=== PATIENT | female | born 1965 ===

== ENCOUNTER → 2017-07-02 | Emergency (ER) | payer OTHER ==
[~2017-07-02] VITALS: Ht 170.2 cm; Wt 71.7 kg
[~2017-07-02] MED LIST: DUI500 PO; FOLIC ACID/B-6/1 TAB; GABADONE CAPSU1 EACH; LOSARTAN POTASS50 MG; LYRICA100 MG; MESTINON60 M1; ORASEP SPRAY30 ML MM; PEPCID AC20 MG; SIMPONI50 MG/0.1; SYNTHROID50 MCG; TRANDOLAPR-VER1 EACH; VERAPAMIL ER100 MG; ZANTAC300 MG
== END | disposition home or self-care (01) ==
LOC: ER 20:54
DX: B35.4 Tinea corporis (principal)

== ENCOUNTER 2017-08-07 11:26 | Outpatient (CLI) | payer OTHER | END 2017-08-07 11:32 | disposition home or self-care (01) | LOC: SONOGRAMA 11:26 | DX: N64.89 Other specified disorders of breast (principal); D64.9 Anemia, unspecified ==

== ENCOUNTER 2019-01-05 04:34 | Emergency (ER) | payer OTHER ==
[~2019-01-05] VITALS: Ht 170.2 cm; Wt 74.4 kg
== END 2019-01-05 18:00 | disposition home or self-care (01) ==
LOC: ER 04:34
DX: N28.1 Cyst of kidney, acquired (principal); R10.11 Right upper quadrant pain; R11.0 Nausea

== ENCOUNTER 2021-10-03 14:01 | Emergency (ER) | payer OTHER ==
[~2021-10-03] VITALS: Ht 170.2 cm; Wt 73.9 kg
[2021-10-03] MEDS ORDERED: AMLODIPINE-OLM1 EAC2 (15:10)
[2021-10-03] MEDS ORDERED: AVAPRO300 MG (15:10)
[2021-10-03] MEDS ORDERED: HUMIRA40 MG/0.2 (15:11)
== END 2021-10-03 19:52 | disposition home or self-care (01) ==
LOC: ER 14:01
DX: M79.662 Pain in left lower leg (principal)

== ENCOUNTER 2021-10-04 07:13 | Emergency (ER) | payer OTHER ==
[~2021-10-04] VITALS: Ht 170.2 cm; Wt 76.7 kg
[~2021-10-04 07:13] MED LIST changes: +AMLODIPINE-OLM1 EAC2; +AVAPRO300 MG; +HUMIRA40 MG/0.2
== END 2021-10-04 08:33 | disposition home or self-care (01) ==
LOC: ER 07:13
DX: M79.662 Pain in left lower leg (principal); M06.30 Rheumatoid nodule, unspecified site

== ENCOUNTER 2022-11-06 12:06 | Emergency (ER) | payer OTHER ==
[~2022-11-06] VITALS: Ht 167.6 cm; Wt 76.2 kg
[2022-11-06] MEDS ORDERED: NORFLEX100MG PO (15:04)
[2022-11-06] MEDS ORDERED: DICLOFENAC POTA50 MG PO (15:04)
== END 2022-11-06 15:20 | disposition home or self-care (01) ==
LOC: ER 12:06
DX: M54.9 Dorsalgia, unspecified (principal); E78.00 Pure hypercholesterolemia, unspecified

== ENCOUNTER 2023-03-08 11:25 | Outpatient (CLI) | payer OTHER ==
[~2023-03-08 11:25] MED LIST changes: +DICLOFENAC POTA50 MG PO; +NORFLEX100MG PO
== END 2023-03-08 11:50 | disposition home or self-care (01) ==
LOC: SONOGRAMA 11:25
DX: I11.9 Hypertensive heart disease without heart failure (principal); I70.1 Atherosclerosis of renal artery

== ENCOUNTER → 2023-04-06 | Outpatient (CLI) | payer OTHER | END | disposition home or self-care (01) | LOC: TOM 07:18 | PROVIDERS: ATTEND Internal Medicine Cardiovascular Disease | DX: G45.9 Transient cerebral ischemic attack, unspecified (principal); I11.9 Hypertensive heart disease without heart failure; E78.2 Mixed hyperlipidemia ==

== ENCOUNTER 2024-06-18 05:58 | Day surgery (SDC) | payer OTHER ==
[2024-06-12 09:50] LABS: HEMATOCRIT 40.1 % (36.0-45.00); HEMOGLOBIN 12.8 g/dL (12.0-15.00); MEAN CELL VOLUME 86.2 fL (80.00-100.00); MEAN CORPUSCULAR HEMOGLOBIN 27.6 pg (27.00-32.0); PLATELET COUNT 224 K/uL (150-450); RED BLOOD COUNT 4.65 M/uL (4.00-6.00); RED CELL DISTRIBUTION WIDTH 13.7 % (11.5-14.5)
[2024-06-12 09:52] LABS: URINE APPEARANCE Clear; URINE BILIRRUBIN Negative (NEGATIVE); URINE BLOOD Negative; URINE COLOR Yellow; URINE GLUCOSE Negative (NEGATIVE); URINE KETONE Negative (NEGATIVE); URINE LEUKOCYTE Negative; URINE NITRATE Negative; URINE PROTEIN Negative (NEGATIVE)
[2024-06-12 09:58] LABS: URINE BACTERIA 335.3 uL (0.0-1933); URINE EPITHELIAL CELLS 11.2 uL (0.0-38.8); URINE RBC 3.2 uL (0.0-20.8); URINE WBC 5.3 uL (0.0-23.2)
[2024-06-12 10:00] LABS: URINE CAST 0.29 uL (0.0-1.40)
[2024-06-12 10:22] LABS: INR 0.97; PARTIAL THROMBOPLASTIN TIME 25.9 SECONDS (22.0-34.0); PROTHROMBIN TIME 10.6 SECONDS (9.0-11.5)
[2024-06-12 10:29] VITALS: BP 130/80
[2024-06-12 11:05] LABS: ALBUMIN 3.7 gm/dL (3.4-5.0); BILIRUBIN TOTAL 0.39 mg/dL (0.3-1.2); CALCIUM 9.4 mg/dL (8.5-10.1); CREATININE SERUM 0.69 mg/dL (0.55-1.02); GFR 87.08; GLOBULINA 3.8 G/DL (2.4-3.5); POTASSIUM 3.99 mEq/L (3.5-5.1); TOTAL PROTEIN 7.5 gm/dL (6.4-8.2)
[~2024-06-18] VITALS: Ht 170.2 cm; Wt 77.1 kg
[~2024-06-18 05:58] MED LIST changes: +CANDESARTAN 32 MG; +METROTEZATE; +ROSUVASTATIN CA40 MG
[2024-06-18] MEDS ORDERED: CEFAZOLIN SODIUM 1,000 MG VIAL ONE (10:09)
[2024-06-18] MEDS ORDERED: BUPIVACAINE HCL/MPF 0.5% 30ML VIAL ONE (12:12)
[2024-06-18] MEDS ORDERED: MORPHINE SULFATE 4 MG/ML VIAL IV ONE (14:40)
[2024-06-18] MEDS ORDERED: ENALAPRILAT DIHYDRATE 1.25 MG/ML VIAL IV ONE ×2 (19:27→19:30)
== END 2024-06-18 16:30 | disposition home or self-care (01) ==
LOC: CIR.AMB 05:58
PROVIDERS: ATTEND Orthopaedic Surgery Hand Surgery
DX: M77.02 Medial epicondylitis, left elbow (principal); I10 Essential (primary) hypertension; E03.8 Other specified hypothyroidism; M79.7 Fibromyalgia